=== PATIENT | female | born 1960 | race Caucasian/White ===

== ENCOUNTER 2018-03-29 10:55 | Inpatient (IN) | payer OTHER ==
[~2018-03-29] VITALS: Ht 162.6 cm; Wt 64.3 kg
[~2018-03-29 10:55] MED LIST: CYCL-259 PO; HYDROCODONE PO; IBUP-1223 PO; IBUPROFEN PO; METH750T2 PO; [UNRECOGNIZED DRUG - OTHER] PO
[2018-03-29] MEDS ORDERED: ACETAMINOPHEN 500 MG TABLET PO ONE (12:00)
[2018-03-29 12:14] LABS: RAPID INFLUENZA A Negative (Negative); RAPID INFLUENZA B Negative (Negative)
[2018-03-29 12:32] LABS: BASOPHILS # (AUTO) 0.03 x10^3/uL (0-0.1); BASOPHILS % (AUTO) 0 % (0-1); EOSINOPHILS # (AUTO) 0.01 x10^3/uL (0-0.4); EOSINOPHILS % (AUTO) 0 % (1-7); LYMPHOCYTES # (AUTO) 1.44 x10^3/uL (1-3.4); LYMPHOCYTES % (AUTO) 10 % (22-44); MD NO; MEAN CORPUSCULAR HEMOGLOBIN 31.2 pg (27.0-34.8); MEAN CORPUSCULAR HGB CONC 33.8 g/dL (32.4-35.8); MEAN CORPUSCULAR VOLUME 92.2 fL (80-100); MEAN PLATELET VOLUME 8.6 fL (7.4-10.4); MONOCYTES % (AUTO) 9 % (2-9); NEUTROPHILS # (AUTO) 12.12 x10^3/uL (1.8-6.8); NEUTROPHILS % (AUTO) 81 % (42-75); PLATELET COUNT 285 x10^3/uL (130-400); RED BLOOD COUNT 4.53 x10^6/uL (3.82-5.3); RED CELL DISTRIBUTION WIDTH 13.6 % (9.6-15.2)
[2018-03-29 12:42] LABS: ALBUMIN 3.4 g/dL (3.4-5.0); ANION GAP 8 mmol/L (5-15); CALCIUM 8.6 mg/dL (8.5-10.1); CHLORIDE 102 mmol/L (98-107)
--- NOTE | 2018-03-29 13:28 | NUR ---
PT AMBULATORY TO ROOM.
[2018-03-29] MEDS ORDERED: ACETAMINOPHEN 500 MG TABLET ONE (14:00)
[2018-03-29] MEDS ORDERED: CEFTRIAXONE PMX 1GM/50ML 50 ML ONE (14:27)
[2018-03-29] MEDS ORDERED: CEFTRIAXONE PMX 1GM/50ML 50 ML IV ONE (14:30)
[2018-03-29] MEDS ORDERED: OMNIPAQUE 350 MG/ML, 75ML BOTTLE ONE (15:00)
[2018-03-29] MEDS ORDERED: BISACODYL 10 MG SUPP PR PRN (17:00)
[2018-03-29] MEDS ORDERED: PHARMACY MAY ADJ FOR RENAL FX MC PRN (17:00)
[2018-03-29] MEDS: ENOXAPARIN 40 MG/0.4 ML SQ SCH (17:00)
[2018-03-29] MEDS ORDERED: GUAIFENESIN/DM 200-20MG, 10ML UDC PO PRN (17:00)
[2018-03-29] MEDS ORDERED: ONDANSETRON 2MG/ML, 2ML IVPB PRN (17:00)
[2018-03-29] MEDS ORDERED: TEMAZEPAM 15 MG CAPSULE PO PRN (17:00)
[2018-03-29 17:41] VITALS: BP 93/65
[2018-03-29] MEDS: NS + 20MEQ KCL 1,000 ML IV SCH (18:23)
[2018-03-29] MEDS: FAMOTIDINE 20 MG TABLET PO SCH (18:24)
[2018-03-29 21:30] VITALS: BP 111/62
[2018-03-30 03:55] VITALS: BP 92/48
[2018-03-30 05:26] LABS: BASOPHILS # (AUTO) 0.01 x10^3/uL (0-0.1); BASOPHILS % (AUTO) 0 % (0-1); EOSINOPHILS # (AUTO) 0.08 x10^3/uL (0-0.4); EOSINOPHILS % (AUTO) 1 % (1-7); LYMPHOCYTES # (AUTO) 1.06 x10^3/uL (1-3.4); LYMPHOCYTES % (AUTO) 11 % (22-44); MD NO; MEAN CORPUSCULAR HEMOGLOBIN 31.1 pg (27.0-34.8); MEAN CORPUSCULAR HGB CONC 33.6 g/dL (32.4-35.8); MEAN CORPUSCULAR VOLUME 92.6 fL (80-100); MONOCYTES # (AUTO) 0.87 x10^3/uL (0.2-0.8); MONOCYTES % (AUTO) 9 % (2-9); NEUTROPHILS # (AUTO) 7.69 x10^3/uL (1.8-6.8); NEUTROPHILS % (AUTO) 79 % (42-75); PLATELET COUNT 254 x10^3/uL (130-400); RED BLOOD COUNT 4.33 x10^6/uL (3.82-5.3); RED CELL DISTRIBUTION WIDTH 13.8 % (9.6-15.2)
[2018-03-30] MEDS: NS + 20MEQ KCL 1,000 ML IV SCH ×2 (05:32→21:24)
[2018-03-30] MEDS: FAMOTIDINE 20 MG TABLET PO SCH ×2 (05:32→17:20)
[2018-03-30 05:35] LABS: ANION GAP 10 mmol/L (5-15); CALCIUM 8.8 mg/dL (8.5-10.1); CHLORIDE 107 mmol/L (98-107)
[2018-03-30 05:38] LABS: ALANINE AMINOTRANSFERASE 42 U/L (12-78); ALKALINE PHOSPHATASE 166 U/L (45-117); CREATININE 0.64 mg/dL (0.55-1.02)
[2018-03-30] MEDS: ACETAMINOPHEN 325 MG TABLET PO PRN ×3 (05:38→15:48)
[2018-03-30 07:26] VITALS: BP 94/57
[2018-03-30] MEDS: METHOCARBAMOL 750 MG TABLET PO SCH (08:25)
[2018-03-30] MEDS ORDERED: [UNRECOGNIZED DRUG - OTHER] PO SCH (09:00)
[2018-03-30] MEDS ORDERED: IBUPROFEN 800 MG TABLET PO SCH (09:00)
[2018-03-30 13:42] VITALS: BP 108/53
[2018-03-30] MEDS: CEFTRIAXONE PMX 1GM/50ML 50 ML IVPB SCH (14:43)
[2018-03-30] MEDS: ENOXAPARIN 40 MG/0.4 ML SQ SCH (17:20)
[2018-03-30] MEDS: AZITHROMYCIN 500 MG in SODIUM CHLORIDE 0.9% 250 ML IV SCH (18:14)
[2018-03-30 19:35] VITALS: BP 122/61
[2018-03-31 00:44] VITALS: BP 107/60
[2018-03-31] MEDS: FAMOTIDINE 20 MG TABLET PO SCH ×2 (04:48→17:32)
[2018-03-31 06:03] LABS: BASOPHILS # (AUTO) 0.03 x10^3/uL (0-0.1); BASOPHILS % (AUTO) 0 % (0-1); EOSINOPHILS # (AUTO) 0.11 x10^3/uL (0-0.4); EOSINOPHILS % (AUTO) 1 % (1-7); LYMPHOCYTES # (AUTO) 1.86 x10^3/uL (1-3.4); LYMPHOCYTES % (AUTO) 23 % (22-44); MD NO; MEAN CORPUSCULAR HGB CONC 33.6 g/dL (32.4-35.8); MEAN CORPUSCULAR VOLUME 92.4 fL (80-100); MONOCYTES % (AUTO) 14 % (2-9); NEUTROPHILS # (AUTO) 4.99 x10^3/uL (1.8-6.8); NEUTROPHILS % (AUTO) 62 % (42-75); PLATELET COUNT 269 x10^3/uL (130-400); RED BLOOD COUNT 4.07 x10^6/uL (3.82-5.3); RED CELL DISTRIBUTION WIDTH 13.7 % (9.6-15.2)
[2018-03-31 06:17] LABS: CHLORIDE 107 mmol/L (98-107)
[2018-03-31 06:24] LABS: ALANINE AMINOTRANSFERASE 38 U/L (12-78); ALBUMIN 2.8 g/dL (3.4-5.0); ALKALINE PHOSPHATASE 149 U/L (45-117); ANION GAP 10 mmol/L (5-15); BILIRUBIN,TOTAL 0.8 mg/dL (0.2-1.0); CALCIUM 8.1 mg/dL (8.5-10.1); CREATININE 0.63 mg/dL (0.55-1.02); TOTAL PROTEIN 6.6 g/dL (6.4-8.2)
[2018-03-31] MEDS ORDERED: POTASSIUM CHLORIDE 20 MEQ TAB.ER.PRT PO ONE (07:00)
[2018-03-31 07:05] VITALS: BP 113/71
[2018-03-31] MEDS: METHOCARBAMOL 750 MG TABLET PO SCH (08:38)
[2018-03-31] MEDS: [UNRECOGNIZED DRUG - OTHER] HOMEMEDPO SCH (08:38)
[2018-03-31] MEDS: NS + 20MEQ KCL 1,000 ML IV SCH (10:11)
[2018-03-31 13:16] VITALS: BP 115/67
[2018-03-31] MEDS: CEFTRIAXONE PMX 1GM/50ML 50 ML IVPB SCH (14:38)
[2018-03-31] MEDS: AZITHROMYCIN 500 MG in SODIUM CHLORIDE 0.9% 250 ML IV SCH (17:32)
[2018-03-31] MEDS: ENOXAPARIN 40 MG/0.4 ML SQ SCH (17:32)
[2018-03-31] MEDS ORDERED: ERGOCALCIFEROL 50,000 UNIT CAPSULE PO SCH (18:00)
[2018-03-31 19:45] VITALS: BP 113/72
[2018-04-01 02:18] VITALS: BP 112/70
[2018-04-01] MEDS: NS + 20MEQ KCL 1,000 ML IV SCH ×2 (02:54→15:13)
[2018-04-01] MEDS: FAMOTIDINE 20 MG TABLET PO SCH ×2 (05:12→17:07)
[2018-04-01 05:42] LABS: ALBUMIN 2.4 g/dL (3.4-5.0); ANION GAP 6 mmol/L (5-15); CALCIUM 8.4 mg/dL (8.5-10.1); CHLORIDE 104 mmol/L (98-107); CREATININE 0.54 mg/dL (0.55-1.02)
[2018-04-01] MEDS: [UNRECOGNIZED DRUG - OTHER] HOMEMEDPO SCH (09:00)
[2018-04-01] MEDS: METHOCARBAMOL 750 MG TABLET PO SCH (09:01)
[2018-04-01 09:58] VITALS: BP 135/78
[2018-04-01] MEDS: ACETAMINOPHEN 325 MG TABLET PO PRN ×2 (12:23→21:20)
[2018-04-01 14:57] VITALS: BP 110/70
[2018-04-01] MEDS: CEFTRIAXONE PMX 1GM/50ML 50 ML IVPB SCH (15:13)
[2018-04-01] MEDS: ENOXAPARIN 40 MG/0.4 ML SQ SCH (17:00)
[2018-04-01] MEDS: AZITHROMYCIN 500 MG in SODIUM CHLORIDE 0.9% 250 ML IV SCH (17:07)
[2018-04-01 17:45] LABS: MICROSCOPIC NOT IND
[2018-04-01 17:53] LABS: CULTURE INDICATED? NO
[2018-04-01 19:52] VITALS: BP 120/72
[2018-04-01] MEDS: MEROPENEM 1 GM in SODIUM CHLORIDE 0.9% 100 ML IV SCH (22:29)
[2018-04-02 02:47] VITALS: BP 128/79
[2018-04-02] MEDS: MEROPENEM 1 GM in SODIUM CHLORIDE 0.9% 100 ML IV SCH ×3 (04:39→22:05)
[2018-04-02] MEDS: FAMOTIDINE 20 MG TABLET PO SCH ×2 (04:39→16:44)
[2018-04-02] MEDS: ACETAMINOPHEN 325 MG TABLET PO PRN ×4 (04:39→20:03)
[2018-04-02 05:24] LABS: BASOPHILS # (AUTO) 0.04 x10^3/uL (0-0.1); BASOPHILS % (AUTO) 1 % (0-1); EOSINOPHILS # (AUTO) 0.49 x10^3/uL (0-0.4); EOSINOPHILS % (AUTO) 7 % (1-7); LYMPHOCYTES # (AUTO) 1.52 x10^3/uL (1-3.4); LYMPHOCYTES % (AUTO) 20 % (22-44); MD NO; MEAN CORPUSCULAR HEMOGLOBIN 30.8 pg (27.0-34.8); MEAN CORPUSCULAR VOLUME 93.3 fL (80-100); MONOCYTES % (AUTO) 11 % (2-9); NEUTROPHILS # (AUTO) 4.59 x10^3/uL (1.8-6.8); NEUTROPHILS % (AUTO) 62 % (42-75); PLATELET COUNT 349 x10^3/uL (130-400); RED BLOOD COUNT 3.88 x10^6/uL (3.82-5.3); RED CELL DISTRIBUTION WIDTH 13.8 % (9.6-15.2)
[2018-04-02 07:35] VITALS: BP 128/65
[2018-04-02] MEDS: [UNRECOGNIZED DRUG - OTHER] HOMEMEDPO SCH (09:00)
[2018-04-02] MEDS: METHOCARBAMOL 750 MG TABLET PO SCH (09:59)
[2018-04-02] MEDS: NS + 20MEQ KCL 1,000 ML IV SCH ×2 (09:59→23:55)
[2018-04-02 14:00] VITALS: BP 124/68
[2018-04-02] MEDS: ENOXAPARIN 40 MG/0.4 ML SQ SCH (16:44)
[2018-04-02 19:57] VITALS: BP 126/77
[2018-04-03 01:13] VITALS: BP 128/74
[2018-04-03] MEDS: FAMOTIDINE 20 MG TABLET PO SCH ×2 (05:47→17:00)
[2018-04-03] MEDS: ACETAMINOPHEN 325 MG TABLET PO PRN ×3 (05:48→23:50)
[2018-04-03] MEDS: MEROPENEM 1 GM in SODIUM CHLORIDE 0.9% 100 ML IV SCH ×3 (05:48→21:57)
[2018-04-03 07:30] VITALS: BP 118/59
[2018-04-03] MEDS: METHOCARBAMOL 750 MG TABLET PO SCH (08:27)
[2018-04-03] MEDS: [UNRECOGNIZED DRUG - OTHER] HOMEMEDPO SCH (08:28)
[2018-04-03] MEDS: NS + 20MEQ KCL 1,000 ML IV SCH (12:23)
[2018-04-03 14:00] VITALS: BP 127/59
[2018-04-03] MEDS: ENOXAPARIN 40 MG/0.4 ML SQ SCH (17:00)
[2018-04-03 20:55] VITALS: BP 124/73
[2018-04-04 02:37] VITALS: BP 142/88
[2018-04-04] MEDS: NS + 20MEQ KCL 1,000 ML IV SCH (03:22)
[2018-04-04 05:20] LABS: BASOPHILS # (AUTO) 0.09 x10^3/uL (0-0.1); BASOPHILS % (AUTO) 1 % (0-1); EOSINOPHILS # (AUTO) 0.74 x10^3/uL (0-0.4); EOSINOPHILS % (AUTO) 11 % (1-7); LYMPHOCYTES % (AUTO) 21 % (22-44); MD NO; MEAN CORPUSCULAR HEMOGLOBIN 30.9 pg (27.0-34.8); MEAN CORPUSCULAR HGB CONC 33.4 g/dL (32.4-35.8); MEAN CORPUSCULAR VOLUME 92.7 fL (80-100); MEAN PLATELET VOLUME 7.8 fL (7.4-10.4); MONOCYTES # (AUTO) 0.62 x10^3/uL (0.2-0.8); MONOCYTES % (AUTO) 9 % (2-9); NEUTROPHILS # (AUTO) 3.79 x10^3/uL (1.8-6.8); NEUTROPHILS % (AUTO) 57 % (42-75); PLATELET COUNT 413 x10^3/uL (130-400); RED BLOOD COUNT 3.74 x10^6/uL (3.82-5.3); RED CELL DISTRIBUTION WIDTH 14.2 % (9.6-15.2)
[2018-04-04 05:30] LABS: ALBUMIN 2.5 g/dL (3.4-5.0); ANION GAP 6 mmol/L (5-15); CALCIUM 8.8 mg/dL (8.5-10.1); CHLORIDE 107 mmol/L (98-107)
[2018-04-04 05:31] LABS: CREATININE 0.55 mg/dL (0.55-1.02)
[2018-04-04] MEDS: FAMOTIDINE 20 MG TABLET PO SCH ×2 (06:00→16:53)
[2018-04-04] MEDS: MEROPENEM 1 GM in SODIUM CHLORIDE 0.9% 100 ML IV SCH (06:01)
[2018-04-04 08:13] VITALS: BP 141/76
[2018-04-04] MEDS: METHOCARBAMOL 750 MG TABLET PO SCH (09:39)
[2018-04-04] MEDS: GUAIFENESIN 200 MG TABLET PO SCH ×4 (09:39→21:45)
[2018-04-04] MEDS: [UNRECOGNIZED DRUG - OTHER] HOMEMEDPO SCH (09:40)
[2018-04-04] MEDS: ERTAPENEM 1 GM in SODIUM CHLORIDE 0.9% 50 ML IV SCH (13:43)
[2018-04-04 14:27] VITALS: BP 131/79
[2018-04-04] MEDS: ENOXAPARIN 40 MG/0.4 ML SQ SCH (16:53)
[2018-04-04 19:22] VITALS: BP 123/75
[2018-04-05 02:13] VITALS: BP 152/75
[2018-04-05 05:15] LABS: BASOPHILS # (AUTO) 0.04 x10^3/uL (0-0.1); BASOPHILS % (AUTO) 1 % (0-1); EOSINOPHILS % (AUTO) 11 % (1-7); LYMPHOCYTES # (AUTO) 1.51 x10^3/uL (1-3.4); LYMPHOCYTES % (AUTO) 23 % (22-44); MD NO; MEAN CORPUSCULAR HEMOGLOBIN 31.1 pg (27.0-34.8); MEAN CORPUSCULAR HGB CONC 33.6 g/dL (32.4-35.8); MEAN CORPUSCULAR VOLUME 92.5 fL (80-100); MEAN PLATELET VOLUME 7.6 fL (7.4-10.4); MONOCYTES % (AUTO) 9 % (2-9); NEUTROPHILS # (AUTO) 3.75 x10^3/uL (1.8-6.8); NEUTROPHILS % (AUTO) 57 % (42-75); PLATELET COUNT 495 x10^3/uL (130-400); RED BLOOD COUNT 4.08 x10^6/uL (3.82-5.3); RED CELL DISTRIBUTION WIDTH 14.3 % (9.6-15.2)
[2018-04-05 05:29] LABS: ALBUMIN 2.7 g/dL (3.4-5.0); ANION GAP 5 mmol/L (5-15); CHLORIDE 104 mmol/L (98-107)
[2018-04-05] MEDS: GUAIFENESIN 200 MG TABLET PO SCH ×2 (05:30→10:58)
[2018-04-05] MEDS: FAMOTIDINE 20 MG TABLET PO SCH (05:30)
[2018-04-05 05:32] LABS: ALANINE AMINOTRANSFERASE 48 U/L (12-78); ALKALINE PHOSPHATASE 132 U/L (45-117); BILIRUBIN,TOTAL 0.6 mg/dL (0.2-1.0); CREATININE 0.83 mg/dL (0.55-1.02); TOTAL PROTEIN 6.7 g/dL (6.4-8.2)
[2018-04-05 06:51] VITALS: BP 107/60
[2018-04-05] MEDS: [UNRECOGNIZED DRUG - OTHER] HOMEMEDPO SCH (08:35)
[2018-04-05] MEDS: ACETAMINOPHEN 325 MG TABLET PO PRN (08:35)
[2018-04-05] MEDS: METHOCARBAMOL 750 MG TABLET PO SCH (08:35)
[2018-04-05] MEDS: ERTAPENEM 1 GM in SODIUM CHLORIDE 0.9% 50 ML IV SCH (13:02)
[2018-04-05 13:18] VITALS: BP 125/79
[2018-04-05] MEDS ORDERED: ERTA1VIA IV (15:04)
[2018-04-05] MEDS ORDERED: OMEP-110 PO (15:10)
[2018-04-05] MEDS ORDERED: GUAI200T3 PO (15:10)
[2018-04-05] MEDS ORDERED: ERGO500017 PO (15:10)
== END 2018-04-05 15:51 | disposition home or self-care (01) | DRG 194 ==
LOC: ED 15:36 → EDIP 15:37 → 3NE 16:14
PROVIDERS: ADMIT Internal Medicine; ATTEND Internal Medicine
DX: J18.1 Lobar pneumonia, unspecified organism (principal); E87.1 Hypo-osmolality and hyponatremia; E55.9 Vitamin D deficiency, unspecified; E87.6 Hypokalemia; F17.200 Nicotine dependence, unspecified, uncomplicated; G89.29 Other chronic pain; M54.2 Cervicalgia; Z98.41 Cataract extraction status, right eye; Z98.42 Cataract extraction status, left eye; Z96.1 Presence of intraocular lens; Z90.710 Acquired absence of both cervix and uterus; Z88.0 Allergy status to penicillin; Z82.5 Family history of asthma and other chronic lower respiratory diseases; Z80.1 Family history of malignant neoplasm of trachea, bronchus and lung; Z79.890 Hormone replacement therapy
CPT/HCPCS: 36415; 71045; 71046; 71260; 80048; 80053; 81003; 82040; 82306; 83605; 83735; 84100; 84145; 85025; 86480; 87040; 87400; 93005; 96365; 99285; G0378; J0456; J0696; J1335; J2185; J3480; Q9967; J7050

== ENCOUNTER → 2018-06-11 | Outpatient (CLI) | payer OTHER ==
[~2018-06-11] MED LIST changes: +ERGO500017 PO; +ERTA1VIA IV; +GUAI200T3 PO; +LORazepam 2 MG/ML, 1ML ONE; +OMEP-110 PO; +OMNIPAQUE 350 MG/ML, 75ML BOTTLE ONE
== END | disposition home or self-care (01) ==
LOC: CFH 09:23
PROVIDERS: ATTEND Nurse Practitioner Family
DX: J18.9 Pneumonia, unspecified organism (principal); Z87.891 Personal history of nicotine dependence
CPT/HCPCS: 71260; Q9967

== ENCOUNTER → 2018-09-29 | Outpatient (CLI) | payer OTHER ==
[~2018-09-29] MED LIST changes: -LORazepam 2 MG/ML, 1ML ONE; -OMNIPAQUE 350 MG/ML, 75ML BOTTLE ONE
== END | disposition home or self-care (01) ==
LOC: RAD 15:03
PROVIDERS: ATTEND Nurse Practitioner Family
DX: R05 Cough (principal)
CPT/HCPCS: 71046